=== PATIENT | female | born 1980 ===

== ENCOUNTER 2022-07-23 14:35 | Outpatient (CLI) | payer OTHER | END 2022-07-23 14:50 | disposition home or self-care (01) | LOC: SONOGRAMA 14:35 | DX: N94.89 Other specified conditions associated with female genital organs and menstrual cycle (principal) ==

== ENCOUNTER 2022-07-25 06:18 | Day surgery (SDC) | payer OTHER ==
[~2022-07-25] VITALS: Ht 162.6 cm; Wt 62.1 kg
== END 2022-07-25 20:40 | disposition home or self-care (01) ==
LOC: CIR.AMB 06:18
PROVIDERS: ATTEND Obstetrics & Gynecology Gynecologic Oncology
DX: N83.291 Other ovarian cyst, right side (principal); N80.101 Endometriosis of right ovary, unspecified depth; Z20.822 Contact with and (suspected) exposure to COVID-19; N80.121 Deep endometriosis of right ovary; F17.210 Nicotine dependence, cigarettes, uncomplicated

== ENCOUNTER 2024-08-24 14:27 | Outpatient (CLI) | payer OTHER | END 2024-08-24 14:50 | disposition home or self-care (01) | LOC: SONOGRAMA 14:27 | DX: N83.8 Other noninflammatory disorders of ovary, fallopian tube and broad ligament (principal); N80.9 Endometriosis, unspecified; D25.9 Leiomyoma of uterus, unspecified; N80.109 Endometriosis of ovary, unspecified side, unspecified depth ==

== ENCOUNTER → 2024-08-25 | Outpatient (CLI) | payer OTHER | END | disposition home or self-care (01) | LOC: RAD 06:32 | DX: R05.9 Cough, unspecified (principal); J18.9 Pneumonia, unspecified organism; R91.8 Other nonspecific abnormal finding of lung field ==